=== PATIENT | female | born 1950 | race Caucasian/White ===

== ENCOUNTER 2022-12-14 05:53 | Day surgery (SDC) | payer MEDICARE, OTHER ==
[~2022-12-14] VITALS: Ht 165.1 cm; Wt 97.3 kg
[2022-12-14 06:13] VITALS: BP 114/71; PULSE 70; TEMP 97.9
[2022-12-14] MEDS ORDERED: NORVASC 10MG10 MG PO (06:18)
[2022-12-14] MEDS ORDERED: VIIBRYD20 MG PO (06:18)
[2022-12-14] MEDS ORDERED: FOSAMAX 70MG TA70 MG PO (06:19)
[2022-12-14] MEDS ORDERED: CELEBREX 200MG200 MG PO (06:20)
[2022-12-14] MEDS ORDERED: BUSPAR 30MG30 MG/TAB PO ×2 (06:20)
[2022-12-14] MEDS ORDERED: SYNTHROID0.175 MG PO (06:21)
[2022-12-14] MEDS ORDERED: VITAMIN D 400400 IU PO (06:21)
[2022-12-14] MEDS ORDERED: ATARAX 25MG25 MG/TAB PO (06:22)
[2022-12-14] MEDS ORDERED: FOLIC ACID 11 MG/TA1 PO (06:22)
[2022-12-14] MEDS ORDERED: PROBIOTIC DIGE1 EACH PO (06:23)
[2022-12-14] MEDS ORDERED: COLESTID 1GM1 G PO (06:23)
[2022-12-14 07:35] VITALS: BP 108/69; PULSE 62; TEMP 96
[2022-12-14 07:50] VITALS: BP 116/71; PULSE 62
[2022-12-14 08:05] VITALS: BP 107/78; PULSE 70
--- NOTE | 2022-12-14 08:10 | NUR ---
0735: PATIENT TO BAY 1 PER CART FROM ENDO SUITE. REPORT RECEVIED FROM ENDO NURSE. VS STABLE. BREATHING EVEN AND UNLABORED. PATIENT REQUEST CRACKERS AND WATER. NO COMPLAINTS AT THIS TIME. RESTING IN RECLINER. CALL LIGHT IN REACH. 0745: DR. SIGALA IN TO SPEAK WITH PATIENT AT THIE TIME. 0750: PATIENT TOLERATING FOOD AND DRINK. VS REMAIN STABLE. PATIENT HAS NO COMPLAINTS AT THIS TIME. RESTING IN RECLINER. CALL LIGHT IN REACH. 0805: VS REMAIN STABLE. DISCHARGE EDUCATION COMPLETED. PATIENT STATED UNDERSTANDING OF INSTRUCTIONS. DISCHARGE PAPERWORK GIVEN TO PATIENT. IV DC'D AT THIS TIME. PATIENT DENIES ANY ASSISTANCE WITH DRESSING. 0810: PATIENT OFF UNIT VIA WHEEL CHAIR. PATIENT DISCHARGED TO HOME WITH SISTER PER PERSONAL VEHICLE.
== END 2022-12-14 08:10 | disposition home or self-care (01) ==
LOC: SDCO 05:53
DX: K57.30 Diverticulosis of large intestine without perforation or abscess without bleeding (principal); K21.9 Gastro-esophageal reflux disease without esophagitis
CPT/HCPCS: J2704; J7120